=== PATIENT | female | born 1990 | race American Indian/Alaskan Native ===

== ENCOUNTER 2021-10-09 11:54 | Emergency (ER) | payer SELFPAY ==
[2021-10-09] MEDS ORDERED: SODIUM CHLORIDE 0.9% 1000 ML 1,000 ML IV ONE ×2 (13:29→16:36)
--- NOTE | 2021-10-09 13:59 | Emergency Department Report ---
ED N/V/D HPI - General Chief complaint: Nausea/Vomiting/Diarrhea Stated complaint: DEHYDRATION Time Seen by Provider: 10/09/21 13:03 Source: patient Mode of arrival: Ambulatory Limitations: No Limitations - History of Present Illness Initial comments: This is a 30-year-old female with no prior medical history presents to ED today complaining of watery loose stools and blood in urine x2 days. Patient states that afternoon she started to feel sick while at work and labs. Patient states she noticed she has had watery loose stools since then and has not had an appetite. Patient also notes that she has noticed pinkish blood in her urine every time she urinates. She denies fever/chills/nausea vomiting/abdominal pain. MD complaint: diarrhea Description of Diarrhea: water Associated Abdominal Pain: No - Related Data Previous Rx's Medication Instructions Recorded Last Taken Type Chlorhexidine Mouthwash [Peridex] 15 ml MM BID #1 bottle 10/09/21 Unknown Rx Nitrofurantoin Acadia/M-Cryst 100 mg PO Q12HR #10 capsule 10/09/21 Unknown Rx [Macrobid CAP] Allergies Allergy/AdvReac Type Severity Reaction Status Date / Time No Known Allergies Allergy Unverified 10/09/21 12:05 ED Review of Systems ROS: Stated complaint: DEHYDRATION Other details as noted in HPI Comment: All other systems reviewed and negative ED Past Medical Hx - Past Medical History Previous Medical History?: Yes - Surgical History Past Surgical History?: Yes - Social History Smoking Status: Never Smoker Substance Use Type: Marijuana - Medications Home Medications: Home Medications Medication Instructions Recorded Confirmed Last Taken Type Chlorhexidine Mouthwash [Peridex] 15 ml MM BID #1 bottle 10/09/21 Unknown Rx Nitrofurantoin Acadia/M-Cryst 100 mg PO Q12HR #10 capsule 10/09/21 Unknown Rx [Macrobid CAP] ED Physical Exam - General Limitations: No Limitations General appearance: alert, in no apparent distress - Head Head exam: Present: atraumatic, normocephalic - Eye Eye exam: Present: normal appearance - ENT ENT exam: Present: mucous membranes moist - Neck Neck exam: Present: normal inspection - Respiratory Respiratory exam: Present: normal lung sounds bilaterally. Absent: respiratory distress - Cardiovascular Cardiovascular Exam: Present: regular rate, normal rhythm. Absent: systolic murmur, diastolic murmur, rubs, gallop - GI/Abdominal GI/Abdominal exam: Present: soft, normal bowel sounds. Absent: distended, tenderness, guarding, mass, bruit - Extremities Exam Extremities exam: Present: normal inspection, full ROM - Back Exam Back exam: Present: normal inspection, full ROM. Absent: CVA tenderness (R), CVA tenderness (L) - Neurological Exam Neurological exam: Present: alert, oriented X3, normal gait - Psychiatric Psychiatric exam: Present: normal affect, normal mood - Skin Skin exam: Present: warm, dry, intact, normal color. Absent: rash ED Course Vital Signs 10/09/21 10/09/21 10/09/21 12:05 12:13 13:36 Temperature 99.2 F 99.2 F Pulse Rate 78 104 H Respiratory 16 14 Rate Blood Pressure 97/60 96/60 [Right] O2 Sat by Pulse 99 99 100 Oximetry ED Medical Decision Making - Lab Data Result diagrams: 10/09/21 13:52 10/09/21 13:52 - EKG Data Rate: tachycardia - Medical Decision Making 27-year-old male presents with a bacterial urinary tract infection ED course: Patient received an antibiotic dose and IVF during ED stay Urinalysis is positive for bacteria and normal otherwise, all other labs within normal limits. I discussed this findings with the patient. I discussed the patient to make sure he completes all of the antibiotic dose even until symptoms resolve. Patient is in no acute distress, patient also has on instructions were given to Patient. - Differential Diagnosis , gastroenteritis, UTI, acute kidney injury Critical care attestation.: If time is entered above; I have spent that time in minutes in the direct care of this critically ill patient, excluding procedure time. ED Disposition Clinical Impression: Acute gastroenteritis, Acute diarrhea, UTI (urinary tract infection), Gingivitis Disposition: HOME / SELF CARE / HOMELESS Is pt being admited?: No Does the pt Need Aspirin: No Condition: Stable Instructions: Rotavirus Infection, Adult, Viral Gastroenteritis, Adult, [id number] Additional Instructions: Make sure to follow up with the primary care physician as discussed. Start taking multivitamins. BRAT diet as discussed If you have any worsening symptoms or develop new symptoms please return to ED i mmediately. Prescriptions: Nitrofurantoin Acadia/M-Cryst [Macrobid CAP] 100 mg PO Q12HR #10 capsule Chlorhexidine Mouthwash [Peridex] 15 ml MM BID #1 bottle Referrals: PATRICK GUTHRIE MD [Primary Care Provider] - 3-5 Days [facility] [Provider Group] - 3-5 Days Forms: Work/School Release Form(ED) Time of Disposition: 16:11
[2021-10-09 14:28] LABS: Basophils % (Auto) 0.2 % (0.0-1.8); Hematocrit 38.9 % (30.3-42.9); Hemoglobin 12.5 gm/dl (10.1-14.3); Lymphocytes # (Auto) 0.4 K/mm3 (1.2-5.4); Lymphocytes % (Auto) 12.3 % (13.4-35.0); Mean Corpuscular HGB Conc 32 % (30-34); Mean Corpuscular Volume 80 fl (79-97); Monocytes # (Auto) 0.1 K/mm3 (0.0-0.8); Monocytes % (Auto) 2.5 % (0.0-7.3); Platelet Count 160 K/mm3 (140-440); Red Blood Count 4.86 M/mm3 (3.65-5.03); Red Cell Distribution Width 13.6 % (13.2-15.2)
[2021-10-09 14:43] LABS: Albumin 4.3 g/dL (3.9-5); Calcium 8.5 mg/dL (8.4-10.2)
[2021-10-09 16:47] LABS: Bacteria,Urine 3+ /HPF (Negative); Bilirubin,Urine NEG (Negative); Blood,Urine LG (Negative); Color,Urine Yellow (Yellow); Mucus,Urine FEW /HPF; Urobilinogen,Urine < 2.0 mg/dL (<2.0)
[2021-10-09] MEDS ORDERED: cefTRIAXone/NS 1 GM/50 ML 1 GM/50 ML BAG IV ONE (16:59)
[2021-10-09 17:58] VITALS: BP 94/53
== END 2021-10-09 18:01 | disposition home or self-care (01) ==
LOC: ED 11:54
DX: K52.9 Noninfective gastroenteritis and colitis, unspecified (principal); N39.0 Urinary tract infection, site not specified; K05.10 Chronic gingivitis, plaque induced
CPT/HCPCS: 36415; 80053; 81001; 84703; 85025; 87076; 87086; 87186; 96361; 96365; 99283; J0696; J7030